=== PATIENT | male | born 1955 | race Caucasian/White ===

== ENCOUNTER 2016-06-25 07:21 | Outpatient (CLI) | payer OTHER ==
[~2016-06-25] VITALS: Ht 180.3 cm; Wt 88.5 kg
[2016-06-25] MEDS ORDERED: TRIAMCINOLONE ACET (KENALOG-40) 40 MG/ML 1 ML VIAL ONE (07:25)
[2016-06-25] MEDS ORDERED: BUPIVACAINE 0.25% 30 ML (SENSORCAINE) VIAL ONE (07:25)
--- OUTSIDE RECORDS SUMMARY | 2016-06-25 07:25 | XMS REPORT | Continuity of Care Document ---
Author Author [facility] Organization [facility] Address Unknown Phone Unavailable Care Team Providers Care Sql Architect Name Role Phone NO, LOCAL PHYSICIAN PCP Unavailable Insurance Providers Payer Name Policy Number Subscriber Name Relationship Self Pay Pending Karrie Apprv [id number] Estevan Wolf 20 Self / Same As Patient Advance Directives Directive Response Recorded Date/Time Advance Directives No 04/09/16 8:59am Health Care Power of Glassware Maker No 04/09/16 8:59am Organ Donor No 04/09/16 8:59am Resuscitation Status Full Code 04/09/16 8:59am Problems No problem information available. Medications No medication information available. Social History Social History Problem Response Recorded Date/Time Recent Foreign Travel No 04/09/2016 9:00am Recent Infectious Disease Exposure No 04/09/2016 9:00am Hospital Discharge Instructions No hospital discharge instructions. Plan of Care Discharge Date 04/09/16 9:41am Instructions/Education Provided DR. CASAS-POST EPIDURAL INST Prescriptions See Medication Section Functional Status No functional status results. Allergies, Adverse Reactions, Alerts No allergy information available. Immunizations No immunization records. Vital Signs Acute Vital Signs Vital Response Date/Time Temperature (Fahrenheit) 97.7 degrees F (97.6 - 99.5) 04/09/2016 9:06am Temperature (Calculated Celsius) 36.22363 degrees C (36.4 - 37.5) 04/09/2016 9:06am Temperature Source Tympanic 04/09/2016 9:06am Pulse Rate (adult) 96 bpm (60 - 90) 04/09/2016 9:39am Respiratory Rate 16 bpm (12 - 24) 04/09/2016 9:39am O2 Sat by Pulse Oximetry 99 % (88 - 100) 04/09/2016 9:39am Blood Pressure 143/103 mm Hg 04/09/2016 9:39am Blood Pressure Mean 112 mm Hg 04/09/2016 9:06am Pain Numeric Pain Scale 6 04/09/2016 9:39am Height (Feet) 5 feet 04/09/2016 9:06am Height (Inches) 11.00 inches 04/09/2016 9:06am Height (Calculated Centimeters) 180.164096 cm 04/09/2016 9:06am Weight (Pounds) 206 pounds 04/09/2016 9:06am Weight (Ounces) 0.0 oz 04/09/2016 9:06am Weight (Calculated Grams) 40199.03 gm 04/09/2016 9:06am Weight (Calculated Kilograms) 93.170897 kilograms 04/09/2016 9:06am Calculated BMI 28.7 04/09/2016 9:06am Results No known relevant diagnostic tests, laboratory data and/or discharge summary. Procedures No known history of procedures. Encounters Encounter Location Arrival/Admit Date Discharge/Depart Date Attending Provider Departed Clinic [facility] 04/09/16 8:46am 04/09/16 9: 41am JERAD CASAS MD
[2016-06-25 07:40] VITALS: BP 131/85
[2016-06-25 08:05] VITALS: BP 139/82
--- NOTE | 2016-06-25 12:50 | Pain Medicine-Procedure ---
Procedure Pre-Op/Post-Op Diagnosis Diagnosis: disc disorder with radiculopathy, lumbar Indications for Operation Low back pain Attending Surgeon Jose Raul Procedure Date of Service: Jun 25, 2016 Procedure: Lumbar Epidural Steroid Injection at the L3-L4 level under Fluoroscopic Guidance Procedure: Patient was identified in the holding area. After risks, benefits, and alternatives were discussed with the patient, informed consent was obtained. Patient was brought to the fluoroscopy suite and placed prone on the procedure room table. A time out was performed. Vital signs were monitored throughout the procedure. The patients low back was prepped and draped in the usual sterile fashion. The patients skin was anesthetized using 2% Lidocaine. A Tuohy needle was inserted and advanced to the L3-L4 epidural space under fluoroscopic guidance using the loss of resistance technique and intermittent projection of fluoroscopy. There was no paresthesia with needle placement. The needle position was confirmed in both the AP and lateral view. After negative aspiration 2ml of contrast was injected under live fluoroscopy which showed good spread of the contrast in the epidural space at the appropriate level, there was no intravascular or subarachnoid spread. Again, after negative aspiration for heme or CSF, 2 ml of 0.25% Bupivicaine, 2ml of preservative free normal saline, and 80mg of Kenalog was injected. The needle was removed and a sterile bandage was placed and the patient was transferred to the recovery area in stable condition. After a brief period of observation, patient was discharged to home with no new neurological deficits and no apparent complications. Complications None JERAD CASAS MD Jun 25, 2016 12:50 pm
== END 2016-06-25 08:06 | disposition home or self-care (01) ==
LOC: CARD 07:21
PROVIDERS: ATTEND Pain Medicine Pain Medicine
DX: M51.16 Intervertebral disc disorders with radiculopathy, lumbar region (principal); Z79.899 Other long term (current) drug therapy
CPT/HCPCS: 62323